=== PATIENT | male | born 1960 | race American Indian/Alaskan Native ===

== ENCOUNTER 2017-11-26 14:30 | Emergency (ER) | payer OTHER ==
[2017-11-26 14:53] VITALS: BP 118/72
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
[2017-11-26] MEDS ORDERED: FLEXERIL PO ONE (19:23)
[2017-11-26] MEDS ORDERED: PERCOCET 5/325 PO ONE (19:23)
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
== END 2017-11-26 23:25 | disposition home or self-care (01) ==
LOC: ED 14:30
DX: S09.90XA Unspecified injury of head, initial encounter (principal); G44.309 Post-traumatic headache, unspecified, not intractable; V43.52XA Car driver injured in collision with other type car in traffic accident, initial encounter; I10 Essential (primary) hypertension; F12.10 Cannabis abuse, uncomplicated; Z86.73 Personal history of transient ischemic attack (TIA), and cerebral infarction without residual deficits; Y93.89 Activity, other specified; Y92.89 Other specified places as the place of occurrence of the external cause; Y99.8 Other external cause status
CPT/HCPCS: 70450; 72125; 72131; 99283